=== PATIENT | male | born 1960 | race Caucasian/White ===

== ENCOUNTER → 2018-12-26 | Outpatient (CLI) | payer OTHER | LOC: M.RAD 16:56 | DX: M54.5 Low back pain (principal); Z88.8 Allergy status to other drugs, medicaments and biological substances; Z88.5 Allergy status to narcotic agent ==

== ENCOUNTER → 2019-01-13 | Outpatient (CLI) | payer OTHER | LOC: M.MRI 06:49 | DX: M48.54XA Collapsed vertebra, not elsewhere classified, thoracic region, initial encounter for fracture (principal); M51.24 Other intervertebral disc displacement, thoracic region ==

== ENCOUNTER → 2019-01-24 | Outpatient (CLI) | payer OTHER ==
[~2019-01-24] MED LIST: FLEXERIL PO; LAMOTRIGINE300 MG PO; MOBIC7.5 MG PO; PROZAC20 MG PO; VITAMIN D50000 UNIT PO
[2019-01-24 15:20] VITALS: BP 120/84
== END ==
LOC: M.INT 14:00
DX: M54.5 Low back pain (principal); Z87.81 Personal history of (healed) traumatic fracture

== ENCOUNTER → 2019-01-30 | Outpatient (CLI) | payer OTHER | LOC: M.RAD 15:47 | DX: M81.0 Age-related osteoporosis without current pathological fracture (principal); M84.48XD Pathological fracture, other site, subsequent encounter for fracture with routine healing; Z88.5 Allergy status to narcotic agent; Z88.8 Allergy status to other drugs, medicaments and biological substances ==

== ENCOUNTER → 2021-01-13 | Outpatient (CLI) | payer OTHER | LOC: M.RAD 14:08 | PROVIDERS: ATTEND Registered Nurse Diabetes Educator | DX: M47.817 Spondylosis without myelopathy or radiculopathy, lumbosacral region (principal) ==

== ENCOUNTER 2021-03-16 16:57 | Emergency (ER) | payer OTHER ==
[~2021-03-16] VITALS: Ht 175.3 cm; Wt 99.8 kg
[2021-03-16] MEDS ORDERED: PROAIR HFA8.5 GM INH (17:14)
[2021-03-16] MEDS ORDERED: SYMBICORT160 MCG/4. INH (17:14)
[2021-03-16] MEDS ORDERED: ADDERALL 10 MG10 MG PO (17:14)
[2021-03-16 17:48] VITALS: BP 135/73
== END 2021-03-16 17:48 | disposition home or self-care (01) ==
LOC: M.ERS 16:57
DX: S61.012A Laceration without foreign body of left thumb without damage to nail, initial encounter (principal); J45.909 Unspecified asthma, uncomplicated; Z79.899 Other long term (current) drug therapy; Z88.5 Allergy status to narcotic agent; Z88.8 Allergy status to other drugs, medicaments and biological substances; W45.8XXA Other foreign body or object entering through skin, initial encounter; Y93.89 Activity, other specified; Y92.89 Other specified places as the place of occurrence of the external cause; Y99.8 Other external cause status